=== PATIENT | female | born 1965 | race Caucasian/White ===

== ENCOUNTER 2017-10-22 09:11 | Outpatient (CLI) | payer BC ==
--- NOTE | 2017-10-22 10:54 | ULT ---
THYROID ULTRASOUND: HISTORY: Thyroid nodules. FINDINGS: The right lobe measures 4.5 cm in length, and the left lobe measures 4.5 cm in length. The isthmus m easures 6 mm in thickness. Multiple nodules are seen bilaterally, the majority of which are solid. A couple of cystic lesions a re seen in the left lobe. The largest of these nodules is in the inferior pole of the right lobe, me asuring 1.6 cm. This is solid, isoechoic, wider than tall, with smooth margins, and no associated ec hogenic foci. IMPRESSION: TI-RADS category 3: Mildly suspicious. A follow-up ultrasound at is recommended at 1, 3, and 5 year s. POS: RUBENS
== END 2017-10-22 09:12 | disposition home or self-care (01) ==
LOC: SCSULT 09:11
PROVIDERS: ATTEND Otolaryngology Plastic Surgery within the Head & Neck
DX: E04.1 Nontoxic single thyroid nodule (principal)
CPT/HCPCS: 76536

== ENCOUNTER 2018-01-18 13:21 | Outpatient (CLI) | payer BC | END 2018-01-18 13:22 | disposition home or self-care (01) | LOC: BICMAMMO 13:21 | PROVIDERS: ATTEND Obstetrics & Gynecology | DX: Z12.31 Encounter for screening mammogram for malignant neoplasm of breast (principal) | CPT/HCPCS: 77063; 77067 ==

== ENCOUNTER 2018-10-21 09:04 | Outpatient (CLI) | payer BC ==
--- NOTE | 2018-10-21 09:39 | ULT ---
US Thyroid STANDARD History: [Thyroid nodule] Comparison: Thyroid ultrasound 2018 Findings: Real-time grayscale and color evaluation of the thyroid was performed. The thyroid is enlarged and hypervascular. Isthmus measures 8 mm in AP dimension. Right lobe measures 6 x 2.1 x 2.2 cm and the left lobe measures 6.1 x 2.1 x 2.9 cm. In the inferior right lobe of thyroid is a 2.1 x 1.2 x 1.5 cm solid hypoechoic nodule with well-defin ed margins without echogenic foci which is wider than tall, TIRADS 3: Mildly suspicious. Given its size, follow-up in one year is recommended. In the interpolar posterior left lobe of thyroid is a 1.3 x 1.1 x 1 cm solid isoechoic nodule with pu nctate echogenic foci, TIRADS 4: moderately suspicious. Given its size, follow-up in one year is recommended. In the inferior pole left lobe of thyroid is a solid isoechoic nodule which is wider than tall measur ing 2.5 x 2 x 2.1 cm with well-defined margins without echogenic foci. This is TIRADS 3: Mildly suspicious. Given its size, fine-needle aspiration is warranted. In the superior pole left lobe of thyroid is a spongiform colloid cyst. Impression: 1. Inferior pole left lobe of thyroid nodule is TIRADS 3: Mildly suspicious. Given it's size, fine-ne edle aspiration is recommended. 2. Enlarged hypervascular thyroid suggesting thyroiditis, possibly Graves' disease.
== END 2018-10-21 09:05 | disposition home or self-care (01) ==
LOC: BICULT 09:04
PROVIDERS: ATTEND Otolaryngology Plastic Surgery within the Head & Neck
DX: E04.1 Nontoxic single thyroid nodule (principal)
CPT/HCPCS: 76536

== ENCOUNTER 2019-01-19 14:41 | Outpatient (CLI) | payer BC ==
--- NOTE | 2019-01-24 06:45 | MMO ---
Bilateral MAMMO Bilat Screen [facility]. CLINICAL HISTORY: Patient is 53 years old and is seen for screening. The patient has no family history of breast cancer. The patient has no personal history of cancer. VIEWS: The views performed were: bilateral craniocaudal with tomosynthesis and bilateral mediolateral oblique with tomosynthesis. FILMS COMPARED: The present examination has been compared to prior imaging studies performed at [facility] on 12/23/2016 and 01/18/2018, and at [facility] [place] on 11/29/2014 and 11/25/2015. MAMMOGRAM FINDINGS: The breasts are heterogeneously dense, which could obscure a lesion on mammography. There is a new equal density, lobular mass measuring 14 millimeters seen in the posterior region of the left breast at 12 o'clock. In the right breast, there are no suspicious masses, calcifications or areas of architectural distortion. IMPRESSION: NEW MASS IN THE LEFT BREAST REQUIRES ADDITIONAL EVALUATION. AN ULTRASOUND EXAM IS RECOMMENDED IF NEEDED. ADDITIONAL IMAGING. THE RESULTS OF THIS EXAM WERE SENT TO THE PATIENT. ACR BI-RADS Category 0 - Incomplete: Need additional imaging evaluation. [facility] will notify the patient of the need for additional imaging services. MAMMOGRAPHY NOTE: 1. A negative mammogram report should not delay a biopsy if a dominant of clinically suspicious mass is present. 2. Approximately 10% to 15% of breast cancers are not detected by mammography. 3. Adenosis and dense breasts may obscure an underlying neoplasm. Reported by: BRANDI FARRAR MD Electonically Signed: [id number]
== END 2019-01-19 14:42 | disposition home or self-care (01) ==
LOC: BICMAMMO 14:41
PROVIDERS: ATTEND Obstetrics & Gynecology
DX: Z12.31 Encounter for screening mammogram for malignant neoplasm of breast (principal); N63.22 Unspecified lump in the left breast, upper inner quadrant
CPT/HCPCS: 77063; 77067

== ENCOUNTER 2019-01-30 07:57 | Outpatient (CLI) | payer BC ==
--- NOTE | 2019-01-30 09:21 | ULT ---
LEFT BREAST ULTRASOUND: HISTORY: Abnormal nodular density on prior mammogram for ultrasound followup. FINDINGS: There is a bilobed circumscribed hypoechoic/anechoic mass with some through transmission at 12 o'cloc k measuring 0.7 x 0.8 x 1.4 cm in size corresponding to the mammographic area of concern. IMPRESSION: Bilobed-shaped cyst at 12 o'clock corresponding to the area of concern on mammogram. BIRADS category 2, benign findings. Continued annual followup mammograms recommended. POS: OFF
== END 2019-01-30 07:58 | disposition home or self-care (01) ==
LOC: BICULT 07:57
PROVIDERS: ATTEND Obstetrics & Gynecology
DX: N63.22 Unspecified lump in the left breast, upper inner quadrant (principal); N60.02 Solitary cyst of left breast

== ENCOUNTER 2019-10-23 07:20 | Outpatient (CLI) | payer BC ==
--- NOTE | 2019-10-23 07:49 | ULT ---
Thyroid sonogram HISTORY: Enlarged thyroid gland. Nodules. COMPARISON: 10/22/2017. FINDINGS: On today's exam, the right thyroid lobe measures up to 6.1 cm. Heterogeneous hypoechoic and isoechoic nodules including mildly cystic components, measuring up to 2.1 cm greatest diameter on the previous exam. Isthmus measures up to 1.0 cm thick. Left thyroid lobe is 6.0 cm length. Multiple heterogeneous hypoechoic/isoechoic and partially cystic masses are again demonstrated. At the inferior pole, the largest now measures up to 2.7 cm x 2.5 cm x 1.9 cm. Larger than on the prior exam. Small cystic component evident. Margins are well-defined. IMPRESSION : Multilobular goiter. Interval enlargement of the dominant nodule at the inferior pole of the left thy roid lobe, now measuring up to 0.7 cm. TI RADS 4. Moderately suspicious. Given the size and interval enlargement. FNA evaluation of the tee nant nodule at the inferior pole left thyroid lobe is warranted.
== END 2019-10-23 07:21 | disposition home or self-care (01) ==
LOC: BICULT 07:20
PROVIDERS: ATTEND Internal Medicine Endocrinology, Diabetes & Metabolism
DX: E04.2 Nontoxic multinodular goiter (principal)
CPT/HCPCS: 76536

== ENCOUNTER 2019-10-31 04:05 | Outpatient (CLI) | payer BC, OTHER ==
[2019-10-31 17:47] LABS: SARS-CoV-2 MS2 Positive; SARS-CoV-2 N Gene Negative; SARS-CoV-2 S Gene Negative; SARS-CoV-2 orf1ab Negative
== END 2019-10-31 04:06 | disposition home or self-care (01) ==
LOC: ERS 04:05
PROVIDERS: ATTEND Internal Medicine Endocrinology, Diabetes & Metabolism
DX: Z20.828 Contact with and (suspected) exposure to other viral communicable diseases (principal)
CPT/HCPCS: 87635; U0003

== ENCOUNTER 2019-11-02 12:37 | Day surgery (SDC) | payer BC ==
[2019-11-01 15:22] VITALS: BMI 21.4
--- NOTE | 2019-11-02 14:58 | ULT ---
PROCEDURE: US Thyroid Needle Bx PROVIDED CLINICAL HISTORY: Enlarging nodule inferior left lobe thyroid gland. Fine-needle aspiration was requested. COMPARISON: Thyroid ultrasound exam on 10/23/2019 TECHNIQUE: After informed consent was obtained, the patient was placed on the sonography table in the supine pos ition. Limited sonographic evaluation of the left lobe of thyroid gland was performed. The neck was then meticulously prepped and draped in usual sterile fashion. Skin and subcutaneous tissues were inf iltrated with buffered 1% lidocaine for local anesthesia at the intended puncture site overlying the inferior pole left lobe of thyroid gland. Utilizing concurrent real-time ultrasound guidance, a total of four 25-gauge fine-needle aspiration s pecimens were obtained. Hemostasis was achieved with direct pressure, and a dry sterile dressing was placed. The patient tolerated the procedure well and without immediate complication. IMPRESSION: Technically successful ultrasound-guided fine-needle aspiration of the dominant and enlarging nodule left lobe of the thyroid gland.
[2019-11-02 15:03] VITALS: BP 146/78; TEMP 97.3
== END 2019-11-02 13:30 | disposition home or self-care (01) ==
LOC: ULT 12:37
PROVIDERS: ATTEND Internal Medicine Endocrinology, Diabetes & Metabolism
PROC: 0GJK3ZZ Inspection of Thyroid Gland, Percutaneous Approach (ICD-10-PCS; principal; 2019-11-02)
PROC: BG44ZZZ Ultrasonography of Thyroid Gland (ICD-10-PCS; principal; 2019-11-02)
DX: E04.1 Nontoxic single thyroid nodule (principal)
CPT/HCPCS: 60100; 76942; 88173

== ENCOUNTER 2019-11-16 09:00 | Outpatient (CLI) | payer BC, OTHER ==
[2019-11-16 20:11] LABS: SARS-CoV-2 IgG Ab Non-Reactive (NonReactive); SARS-CoV-2 IgG Index 0.07 S/CO (< 1.40)
--- NOTE | 2019-11-20 17:23 | EKG ---
Test Reason : PREOP Blood Pressure : / mmHG Vent. Rate : 066 BPM Atrial Rate : 066 BPM P-R Int : 122 ms QRS Dur : 086 ms QT Int : 454 ms P-R-T Axes : 057 079 073 degrees QTc Int : 475 ms Normal sinus rhythm Moderate voltage criteria for LVH, may be normal variant Borderline ECG Confirmed by FAITH DIXON ([id number]) on 11/20/2019 5:22:46 PM Referred By: KAYCEE Confirmed By:FAITH DIXON
== END 2019-11-16 09:01 | disposition home or self-care (01) ==
LOC: SCSLAB 09:00
PROVIDERS: ATTEND Otolaryngology Plastic Surgery within the Head & Neck
DX: Z01.818 Encounter for other preprocedural examination (principal); Z11.59 Encounter for screening for other viral diseases; D44.0 Neoplasm of uncertain behavior of thyroid gland; E04.2 Nontoxic multinodular goiter; E06.3 Autoimmune thyroiditis
CPT/HCPCS: 86769; 93005; 93010

== ENCOUNTER 2020-04-08 13:04 | Outpatient (CLI) | payer BC ==
[2020-04-09 12:11] LABS: SARS-CoV-2 MS2 Positive; SARS-CoV-2 N Gene Negative; SARS-CoV-2 S Gene Negative; SARS-CoV-2 by NAA Not Detected (NotDetected); SARS-CoV-2 orf1ab Negative
== END 2020-04-08 13:05 | disposition home or self-care (01) ==
LOC: LABBT 13:04
PROVIDERS: ATTEND Otolaryngology Plastic Surgery within the Head & Neck
DX: K21.9 Gastro-esophageal reflux disease without esophagitis (principal); Z20.828 Contact with and (suspected) exposure to other viral communicable diseases
CPT/HCPCS: 87635; U0003

== ENCOUNTER 2020-04-11 12:48 | Outpatient (CLI) | payer BC ==
--- NOTE | 2020-04-11 15:14 | RAD ---
Esophagram air contrast HISTORY: Dysphagia. FINDINGS: Air contrast and single column barium evaluation shows a very small sliding hiatal hernia. Small amount of reflux of oral contrast into the esophagus. There is diminished primary and secondary peristalsis. Mild nonpropulsive tertiary type contractions. A 12 mm barium tablet traversed the esophagus without holdup. IMPRESSION : Tiny sliding hiatal hernia with small amount of gastroesophageal reflux. Presbyesophagus. No evidence of obstruction.
--- NOTE | 2020-04-12 11:25 | RAD ---
Modified barium swallow HISTORY: Dysphagia. Feeding difficulties. FINDINGS: Exam was performed by speech pathology with multiple consistencies. Video review is availab le and demonstrates mild early spill of contrast. Good initiation of swallowing. Deep penetration, and potentially aspiration, occurred with a sip of thin liquid. Spontaneous clearin g by the patient. Very mild vallecular residual with good clearance upon secondary swallowing. The esophagus below the level of the hypopharynx was evaluated and reported in a separate exam. Please see separate detailed report from speech pathology.
== END 2020-04-11 12:49 | disposition home or self-care (01) ==
LOC: RAD 12:49
PROVIDERS: ATTEND Otolaryngology Plastic Surgery within the Head & Neck
DX: K21.9 Gastro-esophageal reflux disease without esophagitis (principal); I69.391 Dysphagia following cerebral infarction; R13.12 Dysphagia, oropharyngeal phase; K44.9 Diaphragmatic hernia without obstruction or gangrene; K22.8 Other specified diseases of esophagus
CPT/HCPCS: 74220; 74230

== ENCOUNTER 2022-02-26 10:00 | Day surgery (SDC) | payer BC ==
[2022-02-25 11:46] VITALS: BMI 22.1
[2022-02-26] MEDS ORDERED: B & O ONE (13:02)
[2022-02-26] MEDS ORDERED: Fentanyl 100 MCG/2 ML VIAL ONE (13:05)
[2022-02-26] MEDS ORDERED: Levofloxacin 500 mg/D5W 100 ml Premix Bag ONE (13:14)
[2022-02-26] MEDS ORDERED: Famotidine/PF 20 mg/2ml Vial ONE (13:20)
[2022-02-26] MEDS ORDERED: Scopolamine 1.5 mg/72 hour Patch ONE (13:20)
[2022-02-26] MEDS ORDERED: PROPOFOL 200 MG/20 ML VIAL ONE (13:28)
[2022-02-26] MEDS ORDERED: Dexamethasone 20 MG/5 ML VIAL ONE (13:28)
[2022-02-26] MEDS ORDERED: Ondansetron PF 4 MG/2 ML Vial ONE (13:28)
[2022-02-26] MEDS ORDERED: Lidocaine 1% MPF 2 ML VIAL ONE (13:28)
[2022-02-26] MEDS ORDERED: Metoclopramide HCl 10 MG/2 ML VIAL ONE (13:28)
== END 2022-02-26 15:16 | disposition home or self-care (01) ==
LOC: SDC 10:00
PROVIDERS: ATTEND Urology
PROC: 0T5B8ZZ Destruction of Bladder, Via Natural or Artificial Opening Endoscopic (ICD-10-PCS; principal; 2022-02-26)
DX: N30.81 Other cystitis with hematuria (principal); E89.0 Postprocedural hypothyroidism; Z79.890 Hormone replacement therapy; Z79.899 Other long term (current) drug therapy
CPT/HCPCS: 88305; J1100; J1956; J2405; J2704; J2765; J3010; S0028

== ENCOUNTER 2022-05-05 09:57 | Outpatient (CLI) | payer BC ==
[2022-05-05 11:45] LABS: Bilirubin Neg (Negative); Blood, Urine 50 (Negative); Clarity Clear (Clear); Glucose, Urine (Dipstick) Normal (Negative); Ketone, Urine Negative (Negative); Leukocyte 100 (Negative); Nitrite Negative (Negative); Protein, Urine (Dipstick) Negative (Neg-Trace); Urobilinogen Normal mg/dL (Less than 2)
[2022-05-05 11:46] LABS: Hemoglobin 12.4 g/dL (12.0-15.5); Mean Corpuscular HGB CONC 34.1 g/dL (32.0-36.0); Mean Corpuscular Hemoglobin 30.8 pg (27.0-33.0); Mean Corpuscular Volume 90.3 fl (81.6-98.3); Platelet Count 242 10x3/uL (150-450); RBC Distribution Width 12.5 % (11.5-14.5); Red Blood Cell (RBC) Count 4.03 10x6/uL (3.90-5.03)
[2022-05-05 11:49] LABS: Squamous Epithelial 0-3 HPF (0-3)
[2022-05-05 11:50] LABS: Bacteria/HPF Rare-Few HPF (None Seen)
[2022-05-05 11:55] LABS: Anion Gap 14 mmol/L (10-20); BUN (Urea Nitrogen) 12 mg/dL (9.8-20.1); Calc. Creatinine Clearance 0 mL/min (70-130); Calcium 9.7 mg/dL (7.8-10.44); Carbon Dioxide 25 mmol/L (22-29); Chloride 106 mmol/L (98-107); Estimated GFR 89; Glucose 84 mg/dL (70-105); INR-International Normal Ratio 0.9; PTT 25.1 sec (22.0-33.0); Potassium 3.8 mmol/L (3.5-5.1); Prothrombin Time 10.1 sec (9.5-12.1); Sodium 141 mmol/L (136-145)
== END 2022-05-05 09:58 | disposition home or self-care (01) ==
LOC: LABBT 09:57
PROVIDERS: ATTEND Urology
DX: Z01.818 Encounter for other preprocedural examination (principal); N20.0 Calculus of kidney; N39.0 Urinary tract infection, site not specified; R31.0 Gross hematuria
CPT/HCPCS: 80048; 81001; 85027; 85610; 85730; 87077; 87086; 87186; 93005; 93010

== ENCOUNTER 2022-05-14 07:37 | Day surgery (SDC) | payer BC ==
[2022-05-13 11:20] VITALS: BMI 21.1
[2022-05-14] MEDS ORDERED: Iopamidol 30 ML ONE (09:49)
[2022-05-14] MEDS ORDERED: Levofloxacin 500 mg/D5W 100 ml Premix Bag ONE (09:58)
[2022-05-14] MEDS ORDERED: fentaNYL PF 100 MCG/2 ML SYRINGE ONE (10:05)
[2022-05-14] MEDS ORDERED: Scopolamine 1.5 mg/72 hour Patch ONE (10:08)
[2022-05-14] MEDS ORDERED: ePHEDrine 50 MG/ML VIAL ONE (10:17)
[2022-05-14] MEDS ORDERED: PROPOFOL 200 MG/20 ML VIAL ONE (10:17)
[2022-05-14] MEDS ORDERED: Metoclopramide HCl 10 MG/2 ML VIAL ONE (10:17)
[2022-05-14] MEDS ORDERED: Ondansetron PF 4 MG/2 ML Vial ONE (10:17)
[2022-05-14] MEDS ORDERED: Dexamethasone 20 MG/5 ML VIAL ONE (10:17)
[2022-05-14] MEDS ORDERED: NEOSTIGMINE 3 MG/3 ML SYR 3 MG/3 ML SYRINGE ONE (10:17)
[2022-05-14] MEDS ORDERED: Rocuronium Bromide 10 MG/ML (10ML VIAL) ONE (10:17)
[2022-05-14] MEDS ORDERED: Phenazopyridine HCl 100 MG TAB ONE (11:35)
[2022-05-14] MEDS ORDERED: Oxybutynin 5 MG TAB ONE (11:35)
== END 2022-05-14 14:10 | disposition home or self-care (01) ==
LOC: SDC 07:37
PROVIDERS: ATTEND Urology
PROC: 0T778DZ Dilation of Left Ureter with Intraluminal Device, Via Natural or Artificial Opening Endoscopic (ICD-10-PCS; principal; 2022-05-14)
DX: N20.0 Calculus of kidney (principal); N30.90 Cystitis, unspecified without hematuria; Z79.2 Long term (current) use of antibiotics; Z79.890 Hormone replacement therapy
CPT/HCPCS: 74420; C1713; C1769; C2617; J1100; J1956; J2405; J2704; J2765; J3490; J7643; Q9967

== ENCOUNTER 2022-08-14 09:53 | Outpatient (CLI) | payer BC ==
[2022-08-14 11:34] LABS: Bilirubin Neg (Negative); Blood, Urine 150 (Negative); Clarity Clear (Clear); Glucose, Urine (Dipstick) Normal (Negative); Ketone, Urine Negative (Negative); Leukocyte Negative (Negative); Nitrite Negative (Negative); Protein, Urine (Dipstick) Negative (Neg-Trace); Urobilinogen Normal mg/dL (Less than 2); pH, Urine 6.5 (5.0-9.0)
[2022-08-14 11:39] LABS: Hemoglobin 12.2 g/dL (12.0-15.5); Mean Corpuscular HGB CONC 32.8 g/dL (32.0-36.0); Mean Corpuscular Hemoglobin 30.3 pg (27.0-33.0); Mean Corpuscular Volume 92.3 fl (81.6-98.3); Mean Platelet Volume 9.7 fl (7.4-10.4); Platelet Count 243 10x3/uL (150-450); RBC Distribution Width 12.8 % (11.5-14.5); Red Blood Cell (RBC) Count 4.03 10x6/uL (3.90-5.03); White Blood Cell (WBC) Count 4.9 10x3/uL (3.5-10.5)
[2022-08-14 11:47] LABS: RBC/HPF 0-3 HPF (0-3)
[2022-08-14 11:48] LABS: Bacteria/HPF None Seen HPF (None Seen); Squamous Epithelial None Seen HPF (0-3); WBC/HPF None Seen HPF (0-3)
[2022-08-14 11:51] LABS: INR-International Normal Ratio 0.9; Prothrombin Time 10.1 sec (9.5-12.1)
[2022-08-14 12:01] LABS: Anion Gap 14 mmol/L (10-20); BUN (Urea Nitrogen) 14 mg/dL (9.8-20.1); Calc. Creatinine Clearance 0 mL/min (70-130); Calcium 9.2 mg/dL (7.8-10.44); Carbon Dioxide 24 mmol/L (22-29); Chloride 106 mmol/L (98-107); Estimated GFR 82; Glucose 73 mg/dL (70-105); Potassium 3.9 mmol/L (3.5-5.1); Sodium 140 mmol/L (136-145)
== END 2022-08-14 09:54 | disposition home or self-care (01) ==
LOC: LABBT 09:53
PROVIDERS: ATTEND Urology
DX: Z01.818 Encounter for other preprocedural examination (principal); N39.0 Urinary tract infection, site not specified; Q62.5 Duplication of ureter; N28.89 Other specified disorders of kidney and ureter; N20.0 Calculus of kidney; E06.3 Autoimmune thyroiditis
CPT/HCPCS: 80048; 81001; 85027; 85610; 85730; 87086; 93005; 93010

== ENCOUNTER 2022-11-24 13:01 | Outpatient (CLI) | payer BC | END 2022-11-24 13:02 | disposition home or self-care (01) | LOC: ULT 13:01 | PROVIDERS: ATTEND Urology | DX: N39.0 Urinary tract infection, site not specified (principal); N20.0 Calculus of kidney; Q62.5 Duplication of ureter | CPT/HCPCS: 76770 ==

== ENCOUNTER 2023-11-15 10:57 | Outpatient (CLI) | payer BC | END 2023-11-15 10:58 | disposition home or self-care (01) | LOC: BICRAD 10:57 | PROVIDERS: ATTEND Urology | DX: N20.0 Calculus of kidney (principal); N39.0 Urinary tract infection, site not specified; N28.89 Other specified disorders of kidney and ureter | CPT/HCPCS: 74018 ==

== ENCOUNTER 2025-03-07 08:44 | Outpatient (CLI) | payer BC | END 2025-03-07 08:45 | disposition home or self-care (01) | LOC: SCSBT 08:44 | PROVIDERS: ATTEND Internal Medicine Endocrinology, Diabetes & Metabolism | DX: M81.0 Age-related osteoporosis without current pathological fracture (principal) | CPT/HCPCS: 77080 ==